=== PATIENT | female | born 1955 | race Caucasian/White ===

== ENCOUNTER 2022-06-02 14:30 | Emergency (ER) | payer MEDICARE ==
[2022-06-02] VITALS (12 sets, daily range): BP systolic 122–158; BP diastolic 72–116
[~2022-06-02] VITALS: Ht 157.5 cm; Wt 54.4 kg
[2022-06-02] MEDS ORDERED: VENLAFAXINE HCL75 M1 PO (16:36)
[2022-06-02] MEDS ORDERED: FAMOTIDINE20 M3 PO (16:36)
[2022-06-02] MEDS ORDERED: SYNTHROID88 MCG PO (16:38)
[2022-06-02] MEDS ORDERED: LORTAB 5/3255 MG PO (18:22)
[2022-06-02] MEDS ORDERED: NAPROXEN220 MG PO (18:22)
== END 2022-06-02 19:54 | disposition home or self-care (01) ==
LOC: ED 14:30
DX: S93.402A Sprain of unspecified ligament of left ankle, initial encounter (principal); W10.8XXA Fall (on) (from) other stairs and steps, initial encounter; Y92.008 Other place in unspecified non-institutional (private) residence as the place of occurrence of the external cause